=== PATIENT | female | born 2000 | race Two or more races ===

== ENCOUNTER 2020-02-06 19:43 | Emergency (ER) | payer BC ==
[~2020-02-06] VITALS: Ht 167.6 cm; Wt 100.0 kg
[~2020-02-06 19:43] MED LIST: BIRTH CONTROL; OXYC-302 PO
[2020-02-06] MEDS ORDERED: LIDOCAINE-MPF 1%, 5ML ONE ×2 (19:59→22:59)
[2020-02-06] MEDS ORDERED: SODIUM CHLORIDE FLUSH 10ML SYR IVF ONE (20:00)
[2020-02-06] MEDS ORDERED: LIDOCAINE-MPF 1%, 5ML INFIL ONE (20:00)
[2020-02-06] MEDS ORDERED: ONDANSETRON 2MG/ML, 2ML ONE ×2 (20:24→23:44)
[2020-02-06] MEDS ORDERED: MORPHINE SULFATE 4 MG/ML, 1ML ONE ×2 (20:25→23:17)
[2020-02-06] MEDS ORDERED: LORazepam 2 MG/ML, 1ML IVPush ONE (20:30)
[2020-02-06] MEDS ORDERED: ONDANSETRON 2MG/ML, 2ML IVPush ONE (20:30)
[2020-02-06] MEDS: MORPHINE SULFATE 4 MG/ML, 1ML IVPush PRN ×2 (20:31→23:21)
[2020-02-06] MEDS ORDERED: LORazepam 2 MG/ML, 1ML ONE (20:39)
[2020-02-06 20:48] LABS: BASOPHILS % (AUTO) 1 % (0-1); EOSINOPHILS % (AUTO) 2 % (1-7); LYMPHOCYTES % (AUTO) 43 % (22-44); MEAN CORPUSCULAR HEMOGLOBIN 30.4 pg (27.0-34.8); MEAN CORPUSCULAR HGB CONC 34.2 g/dL (32.4-35.8); MEAN PLATELET VOLUME 7.7 fL (7.4-10.4); MONOCYTES % (AUTO) 5 % (2-9); NEUTROPHILS % (AUTO) 49 % (42-75); PLATELET COUNT 491 x10^3/uL (130-400); RED BLOOD COUNT 4.54 x10^6/uL (3.82-5.3); RED CELL DISTRIBUTION WIDTH 12.5 % (9.6-15.2)
[2020-02-06 20:52] LABS: ALBUMIN 3.8 g/dL (3.4-5.0); ANION GAP 5 mmol/L (5-15); CALCIUM 9.1 mg/dL (8.5-10.1); CHLORIDE 113 mmol/L (98-107)
[2020-02-06 20:56] LABS: ALANINE AMINOTRANSFERASE 26 U/L (12-78); ALKALINE PHOSPHATASE 81 U/L (45-117); BILIRUBIN,TOTAL 0.3 mg/dL (0.2-1.0); MD NO; TOTAL PROTEIN 7.7 g/dL (6.4-8.2)
[2020-02-06] MEDS ORDERED: L.E.T SOLUTION TP ONE ×2 (21:14→21:30)
[2020-02-06] MEDS ORDERED: CEFAZOLIN PMX 1GM/50ML 50 ML IV ONE (23:00)
[2020-02-06] MEDS ORDERED: CEFAZOLIN PMX 1GM/50ML 0 ML ONE (23:17)
[2020-02-06] MEDS ORDERED: CEFAZOLIN PMX 1GM/50ML 50 ML ONE (23:17)
[2020-02-07] MEDS ORDERED: ONDANSETRON 2MG/ML, 2ML IVPush ONE
[2020-02-07 00:29] VITALS: BP 117/68
== END 2020-02-07 00:56 | disposition home or self-care (01) ==
LOC: ED 22:50
DX: S02.2XXA Fracture of nasal bones, initial encounter for closed fracture (principal); S01.81XA Laceration without foreign body of other part of head, initial encounter; S01.111A Laceration without foreign body of right eyelid and periocular area, initial encounter; S16.1XXA Strain of muscle, fascia and tendon at neck level, initial encounter; S00.93XA Contusion of unspecified part of head, initial encounter; Z87.891 Personal history of nicotine dependence; V13.4XXA Pedal cycle driver injured in collision with car, pick-up truck or van in traffic accident, initial encounter; Y93.89 Activity, other specified; Y92.410 Unspecified street and highway as the place of occurrence of the external cause; Y99.8 Other external cause status
CPT/HCPCS: 36415; 70450; 70486; 72125; 73110; 80053; 84703; 85025; 96365; 96375; 96376; 99285; J0690; J2060; J2270; J2405